=== PATIENT | male | born 1935 | race Caucasian/White ===

== ENCOUNTER → 2017-10-07 07:23 | Outpatient (CLI) | payer MEDICARE, SELFPAY ==
[2017-10-07 13:31] LABS: Basophils % 0.6 % (0.1-2.0); Eosinophils # 0.5 K/mm3 (0.0-0.4); Eosinophils % 8.7 % (0.1-12.0); Hematocrit 41.1 % (42.0-52.0); Hemoglobin 13.3 g/dL (14.1-18.0); Lymphocytes # 1.1 K/mm3 (0.7-4.5); Lymphocytes % 18.7 K/mm3 (10-50); Mean Corpuscular HGB Conc 32.4 g/dL (31.8-35.4); Mean Corpuscular Hemoglobin 29.6 pg (27.0-31.2); Mean Corpuscular Volume 91.4 fl (80-94); Mean Platelet Volume 8.2 fl (7.4-10.4); Monocytes # 0.4 K/mm3 (0.1-1.0); Monocytes % 6.5 % (1.7-9.3); Neutrophils # 3.7 K/mm3 (1.8-7.8); Neutrophils % 65.5 % (37.0-80.0); Platelet Count 175 K/mm3 (142-424); Red Cell Distribution Width 13.9 % (11.5-17.5); White Blood Count 5.7 K/mm3 (4.8-10.8)
[2017-10-07 14:00] LABS: Alanine Aminotransferase 19 U/L (12-78); Albumin Level 3.5 gm/dL (3.4-5.0); Albumin/Globulin Ratio 1.3 (1.1-1.8); Alkaline Phosphatase 91 U/L (46-116); Anion Gap 13.1 mEq/L (5-15); Aspartate Amino Transferase 14 U/L (15-37); Bilirubin,Total 0.3 mg/dL (0.2-1.0); Blood Urea Nitrogen 15 mg/dL (7-18); Calcium 8.4 mg/dL (8.5-10.1); Carbon Dioxide 25 mmol/L (21.0-32.0); Chloride 110 mmol/L (98-107); Chol/HDL Ratio 3.3 (1-3.5); Cholesterol 147 mg/dL (140-200); Creatinine,Serum 1.08 mg/dL (0.70-1.30); Estimated Glomerular Filt Rate 65 ml/min (>60); GFR (African American) 79 ML/MIN (>60); Globulin 2.6 gm/dl (1.3-3.2); Glucose 103 mg/dL (74-106); HDL Cholesterol 44 mg/dL (27-67); LDL Cholesterol 83 mg/dL (0-130); Potassium 4.1 mmoL/L (3.5-5.1); Sodium 144 mmol/L (136-145); Total Protein,Serum 6.1 gm/dL (6.4-8.2); Triglycerides 102 mg/dL (30-200); VLDL Cholesterol 20 mg/dL (0-40)
[2017-10-08 06:21] LABS: PSA, Free 0.59 ng/mL; Prostate Specific Ag 1.2 ng/mL (0.0-4.0)
== END ==
PROVIDERS: Visit Provider Physician Assistant
DX: Z79.899 Other long term (current) drug therapy (principal); E78.5 Hyperlipidemia, unspecified; I10 Essential (primary) hypertension; N40.0 Benign prostatic hyperplasia without lower urinary tract symptoms
CPT/HCPCS: 36415; 80053; 80061; 84153; 84154; 84443; 85025

== ENCOUNTER 2017-10-31 13:35 | Outpatient (CLI) | payer MEDICARE, SELFPAY ==
[2017-10-31 14:10] VITALS: BP 167/62; PULSE 52; RESP 18; TEMP 36.9
== END 2017-10-31 14:30 | disposition home or self-care (01) ==
PROVIDERS: PCP Family Medicine; Visit Provider Surgery
DX: R10.30 Lower abdominal pain, unspecified (principal)
CPT/HCPCS: 96372

== ENCOUNTER → 2018-04-24 07:14 | Outpatient (CLI) | payer MEDICARE, SELFPAY ==
[2018-04-24 13:42] LABS: Alanine Aminotransferase 20 U/L (12-78); Albumin Level 3.7 gm/dL (3.4-5.0); Albumin/Globulin Ratio 1.4 (1.1-1.8); Alkaline Phosphatase 95 U/L (46-116); Anion Gap 10.4 mEq/L (5-15); Aspartate Amino Transferase 16 U/L (15-37); Bilirubin,Total 0.5 mg/dL (0.2-1.0); Blood Urea Nitrogen 11 mg/dL (7-18); Calcium 8.7 mg/dL (8.5-10.1); Carbon Dioxide 31 mmol/L (21.0-32.0); Chloride 107 mmol/L (98-107); Chol/HDL Ratio 2.7 (1-3.5); Cholesterol 144 mg/dL (140-200); Creatinine,Serum 1.06 mg/dL (0.70-1.30); Estimated Glomerular Filt Rate 67 ml/min (>60); GFR (African American) 81 ML/MIN (>60); Globulin 2.7 gm/dl (1.3-3.2); Glucose 92 mg/dL (74-106); HDL Cholesterol 53 mg/dL (27-67); LDL Cholesterol 81 mg/dL (0-130); Potassium 4.4 mmoL/L (3.5-5.1); Sodium 144 mmol/L (136-145); Thyroid Stimulating Hormone 2.69 uIU/ml (0.358-3.740); Total Protein,Serum 6.4 gm/dL (6.4-8.2); Triglycerides 50 mg/dL (30-200); VLDL Cholesterol 10 mg/dL (0-40)
[2018-04-24 14:10] LABS: Hemoglobin A1C 5.4 % (0.0-7.0)
[2018-04-24 14:16] LABS: Basophils # 0.1 K/mm3 (0-0.2); Eosinophils # 0.7 K/mm3 (0.0-0.4); Eosinophils % 14.3 % (0.1-12.0); Hemoglobin 13.4 g/dL (14.1-18.0); Lymphocytes # 1.1 K/mm3 (0.7-4.5); Lymphocytes % 23.2 K/mm3 (10-50); Mean Corpuscular HGB Conc 31.9 g/dL (31.8-35.4); Mean Corpuscular Volume 94.2 fl (80-94); Mean Platelet Volume 8.1 fl (7.4-10.4); Monocytes # 0.3 K/mm3 (0.1-1.0); Monocytes % 7.3 % (1.7-9.3); Neutrophils # 2.5 K/mm3 (1.8-7.8); Neutrophils % 54.1 % (37.0-80.0); Platelet Count 177 K/mm3 (142-424); Red Blood Count 4.46 M/mm3 (4.60-6.20); Red Cell Distribution Width 13.8 % (11.5-17.5); White Blood Count 4.7 K/mm3 (4.8-10.8)
[2018-04-25 17:30] LABS: Microalbumin, Urine 38.4 ug/mL (Not Estab.)
== END ==
PROVIDERS: PCP Physician Assistant; Visit Provider Physician Assistant
DX: I10 Essential (primary) hypertension (principal); R73.01 Impaired fasting glucose; E78.5 Hyperlipidemia, unspecified; I25.10 Atherosclerotic heart disease of native coronary artery without angina pectoris; N18.9 Chronic kidney disease, unspecified
CPT/HCPCS: 36415; 80053; 80061; 82043; 83036; 84443; 85025

== ENCOUNTER → 2018-05-22 07:46 | Outpatient (CLI) | payer MEDICARE, SELFPAY ==
[2018-05-22 13:45] LABS: Basophils % 0.5 % (0.1-2.0); Eosinophils # 0.6 K/mm3 (0.0-0.4); Eosinophils % 11.4 % (0.1-12.0); Hematocrit 40.5 % (42.0-52.0); Hemoglobin 13.3 g/dL (14.1-18.0); Lymphocytes # 1.1 K/mm3 (0.7-4.5); Lymphocytes % 20.4 K/mm3 (10-50); Mean Corpuscular Hemoglobin 30.6 pg (27.0-31.2); Mean Corpuscular Volume 92.7 fl (80-94); Mean Platelet Volume 7.5 fl (7.4-10.4); Monocytes # 0.3 K/mm3 (0.1-1.0); Monocytes % 5.5 % (1.7-9.3); Neutrophils # 3.4 K/mm3 (1.8-7.8); Neutrophils % 62.3 % (37.0-80.0); Platelet Count 192 K/mm3 (142-424); Red Blood Count 4.37 M/mm3 (4.60-6.20); Red Cell Distribution Width 13.5 % (11.5-17.5); White Blood Count 5.5 K/mm3 (4.8-10.8)
[2018-05-22 14:07] LABS: Alanine Aminotransferase 20 U/L (12-78); Albumin Level 3.8 gm/dL (3.4-5.0); Albumin/Globulin Ratio 1.4 (1.1-1.8); Alkaline Phosphatase 82 U/L (46-116); Anion Gap 13.1 mEq/L (5-15); Aspartate Amino Transferase 19 U/L (15-37); Bilirubin,Total 0.5 mg/dL (0.2-1.0); Blood Urea Nitrogen 15 mg/dL (7-18); Carbon Dioxide 26 mmol/L (21.0-32.0); Chloride 109 mmol/L (98-107); Creatinine,Serum 1.01 mg/dL (0.70-1.30); Estimated Glomerular Filt Rate 70 ml/min (>60); GFR (African American) 85 ML/MIN (>60); Globulin 2.7 gm/dl (1.3-3.2); Glucose 88 mg/dL (74-106); Potassium 4.1 mmoL/L (3.5-5.1); Sodium 144 mmol/L (136-145); Total Protein,Serum 6.5 gm/dL (6.4-8.2)
[2018-05-24 07:50] LABS: Peripheral Smear Review Scanned Result
== END ==
PROVIDERS: PCP Nurse Practitioner Family; Visit Provider Nurse Practitioner Family
DX: I10 Essential (primary) hypertension (principal)
CPT/HCPCS: 36415; 80053; 85025

== ENCOUNTER → 2022-05-17 14:27 | Outpatient (CLI) | payer MEDICARE, SELFPAY ==
[2022-05-17 17:48] LABS: MANUAL DIFFERENTIAL MANUAL DIFFERENTIAL (MANUAL DIFF)
[2022-05-17 17:59] LABS: Alanine Aminotransferase 15 U/L (12-78); Albumin Level 3.6 g/dl (3.5-5.0); Albumin/Globulin Ratio 1.8 (1.1-1.8); Alkaline Phosphatase 117 U/L (38-126); Anion Gap 12.5 mEq/L (5-15); Aspartate Amino Transferase 31 U/L (17-59); Bilirubin,Total 0.7 mg/dl (0.2-1.3); Blood Urea Nitrogen 19 mg/dl (9-20); Calcium 8.6 mg/dl (8.4-10.2); Carbon Dioxide 29 mmol/L (22.0-30.0); Chloride 104 mmol/L (98-107); Chol/HDL Ratio 2.4 (1-3.5); Cholesterol 153 mg/dl (140-200); Estimated Glomerular Filt Rate 91 ml/min (>60); GFR (African American) 110 ML/MIN (>60); Glucose 84 mg/dl (74-100); HDL Cholesterol 64 mg/dl (40-60); Potassium 4.5 mmoL/L (3.5-5.1); Sodium 141 mmol/L (136-145); Total Protein,Serum 5.6 g/dl (6.3-8.2); Triglycerides 47 mg/dl (30-150); VLDL Cholesterol 9 mg/dL (0-40)
[2022-05-17 18:10] LABS: Direct LDL Cholesterol 65.63 mg/dL (100-129)
[2022-05-17 18:27] LABS: Basophils # 0.1 K/mm3 (0-0.2); Basophils % 1.1 % (0.1-2.0); Eosinophils # 0.5 K/mm3 (0.0-0.4); Eosinophils % 8.4 % (0.1-12.0); Hematocrit 41.4 % (42.0-52.0); Hemoglobin 13.4 g/dL (14.1-18.0); Lymphocytes # 0.7 K/mm3 (0.7-4.5); Lymphocytes % 11.9 % (10-50); Mean Corpuscular HGB Conc 32.3 g/dL (31.8-35.4); Mean Corpuscular Hemoglobin 29.7 pg (27.0-31.2); Mean Platelet Volume 9.7 fl (7.4-10.4); Monocytes # 0.5 K/mm3 (0.1-1.0); Monocytes % 7.8 % (1.7-9.3); Neutrophils # 4.4 K/mm3 (1.8-7.8); Neutrophils % 70.7 % (37.0-80.0); Platelet Count 205 K/mm3 (142-424); Red Blood Count 4.51 M/mm3 (4.60-6.20); Red Cell Distribution Width 14.6 % (11.5-17.5); White Blood Count 6.2 K/mm3 (4.8-10.8)
[2022-05-17 19:21] LABS: Eosinophils % 8 % (0-3); Lymphocytes % 13 % (10-50); Monocytes % 4 % (2-9); Neutrophils % 74 % (42-76); Ovalocytes 1+; Total Cells Counted 100
[2022-05-17 19:22] LABS: Platelet Estimate Normal
== END ==
PROVIDERS: PCP Nurse Practitioner Family; Visit Provider Nurse Practitioner Family
DX: E78.5 Hyperlipidemia, unspecified (principal); I10 Essential (primary) hypertension
CPT/HCPCS: 80053; 80061; 85007; 85014; 85018; 85048; 85049

== ENCOUNTER 2022-12-29 09:49 | Emergency (ER) | payer MEDICARE, SELFPAY ==
--- NOTE | 2022-12-29 09:53 | XR_ITS ---
PROCEDURE INFORMATION: Exam: XR Complete Acute Abdomen Series Including Chest Exam date and time: 12/29/2022 10:28 AM Age: 87 years old Clinical indication: Abdominal pain; Generalized; Patient HX: Constipation x 4 days w constant anal seepage. PT states he typically stays constipated w bowel movements x once a month. 0 chest complaints TECHNIQUE: Imaging protocol: Radiologic exam. Complete acute abdomen series, including 2 or more views of the abdomen and a single view chest. Total images: 2 COMPARISON: CR CXR1 CHEST-PORTABLE 03/30/2017 10:43 PM FINDINGS: Lungs: Bilateral hyperinflation is present. Granulomatous calcification noted within the lower right lung. No focal pneumonia or pneumothorax. Pleural spaces: No pleural effusions. Heart/Mediastinum: Normal. No cardiomegaly. Gastrointestinal tract: Large amount of stool is present throughout the colon. Bowel gas pattern is nonobstructive and nonspecific. Intraperitoneal space: Normal. No free air. Vasculature: Mild atherosclerotic disease. Bones/joints: Moderate degenerative changes of the thoracolumbar spine. Soft tissues: Normal. IMPRESSION: 1. Bowel gas pattern is nonobstructive and nonspecific. 2. Bilateral hyperinflation is present. 3. No focal pneumonia or pneumothorax. 4. No pleural effusions. 5. Large amount of stool is present throughout the colon.
--- NOTE | 2022-12-29 09:58 | HMH.EDABDPAI ---
Discharge Plan Disposition Patient Disposition: Home, Self-Care Condition: Good Chief Complaint: Abdominal Pain Prescriptions Prescriptions: No Action aspirin 81 mg tablet,delayed release (DR/EC) 81 mg PO DAILY doxazosin 1 mg tablet 1 mg PO DAILY cyanocobalamin (vitamin B-12) 500 mcg tablet 500 mcg PO DAILY carvedilol 3.125 mg tablet See Rx Instructions .ROUTE .COMPLEX Qty: 60 3RF Dose Instruction: TAKE 1 TABLET BY MOUTH TWICE DAILY WITH FOOD Rx Instructions: TAKE 1 TABLET BY MOUTH TWICE DAILY WITH FOOD allopurinol 100 mg tablet See Rx Instructions .ROUTE .COMPLEX Qty: 30 1RF Dose Instruction: TAKE 1 TABLET BY MOUTH DAILY Rx Instructions: TAKE 1 TABLET BY MOUTH DAILY lisinopril 40 mg tablet See Rx Instructions .ROUTE .COMPLEX Qty: 30 1RF Dose Instruction: TAKE 1 TABLET BY MOUTH DAILY Rx Instructions: TAKE 1 TABLET BY MOUTH DAILY atorvastatin 40 mg tablet See Rx Instructions .ROUTE .COMPLEX Qty: 30 0RF Dose Instruction: TAKE 1 TABLET BY MOUTH EVERY DAY Rx Instructions: TAKE 1 TABLET BY MOUTH EVERY DAY Referrals Follow up/Referrals: Provider,Referral, MD [Primary Care Provider] - See instructions Activity Restrictions/Add. Instructions Additional Instructions/Restrictions: I recommend that you take 1 [id number] Colace pill twice a day to prevent further constipation. Follow-up with your primary care doctor as needed. Return to the emergency department if you feel worse in any way. Clinical Impressions Clinical Impression: Constipation Instructions Patient Instructions: DI for Constipation Discharge ED Provider: Gordon Tamayo Abdominal Pain HPI General Chief Complaint: Abdominal Pain Stated Complaint: bowel trouble Time Seen by Provider: 12/29/22 09:53 Mode of Arrival: Family Vehicle Source of Information: Patient History of Present Illness HPI narrative: The patient presents to the emergency department complaining of constipation for the last 3 days. He has this problem frequently. He took MiraLAX without any success. He denies fever, abdominal pain, nausea, vomiting Related Data Home Medications Medication Instructions Recorded Confirmed aspirin 81 mg tablet,delayed 81 mg PO DAILY Heart disease 10/08/17 05/17/22 release cyanocobalamin (vitamin B-12) 500 500 mcg PO DAILY 05/16/22 05/17/22 mcg tablet doxazosin 1 mg tablet 1 mg PO DAILY 05/16/22 05/17/22 Previous Rx's Medication Instructions Recorded carvedilol 3.125 mg tablet See Rx Instructions .Route 10/15/22 .COMPLEX #60 tabs allopurinol 100 mg tablet See Rx Instructions .Route 11/08/22 .COMPLEX #30 tabs lisinopril 40 mg tablet See Rx Instructions .Route 11/23/22 .COMPLEX #30 tabs atorvastatin 40 mg tablet See Rx Instructions .Route 12/18/22 .COMPLEX #30 tabs Allergies Allergy/AdvReac Type Severity Reaction Status Date / Time NKDA Allergy Unknown Uncoded 11/20/17 14:14 [facility] Disclaimer: The information contained in this section may have been updated after the patient was seen, as this information can be updated by other users. Medical History (Updated 12/29/22 @ 11:21 by Gordon Tamayo MD) CAD (coronary artery disease) Hyperlipidemia Hypertension Surgical History (Updated 05/16/22 @ 10:35 by Rossi Chow LPN) H/O heart artery stent H/O hernia repair Leg fracture, left Social History (Updated 05/16/22 @ 10:33 by Rossi Chow LPN) Smoking Status: Never smoker alcohol intake: never counseling provided: provider counseling substance use type: denies use current occupational status: retired Travel in the last 8 weeks: None household members: spouse and children housing: house current occupational exposures/hazards: No caffeine: No ROS Obtained: Yes All systems reviewed & no additional complaints except as documented Physical Exam General General appeara
--- NOTE | 2022-12-29 10:05 | ECG_ITS ---
APPROVED REPORT Exam: Resting ECG HR:70 bpm ECG Measurements Heart Rate 70 AXES RI 135 P 256 QRSd 146 QRS 92 QT 414 T 55 QTc 435 Conclusion JUNCTIONAL RHYTHM WITH OCCASIONAL SUPRAVENTRICULAR PREMATURE COMPLEXES BORDERLINE RIGHT AXIS DEVIATION [QRS AXIS > 90] INTRAVENTRICULAR CONDUCTION DELAY [130+ ms QRS DURATION] ABNORMAL ECG UNCONFIRMED REPORT Electronically signed by : Dada Gomes MD 12/30/2022 09:00:23
[2022-12-29 10:09] VITALS: BP 211/111; PULSE 172; RESP 18; O2SAT 96; BMI 19.2
--- NOTE | 2022-12-29 10:22 | PC.NURSE ---
pt to radiology
[2022-12-29 11:33] VITALS: BP 170/84; PULSE 80; RESP 18; TEMP 36.7; O2SAT 96
== END 2022-12-29 11:38 | disposition home or self-care (01) ==
PROVIDERS: Emergency Provider Emergency Medicine
DX: K59.00 Constipation, unspecified (principal); I25.10 Atherosclerotic heart disease of native coronary artery without angina pectoris; E78.5 Hyperlipidemia, unspecified; I10 Essential (primary) hypertension; I49.1 Atrial premature depolarization
CPT/HCPCS: 74021; 93005; 99283; 99284